=== PATIENT | male | born 1990 | race African-American/Black ===

== ENCOUNTER 2018-09-10 13:23 | Emergency (ER) | payer SELFPAY ==
[2018-09-10 16:48] LABS: #Eosinphils 0.1 thou/uL (0.0-0.7); #Lymphocytes 1.9 thou/uL (1.20-3.40); #Monocytes 0.6 thou/uL (0.11-0.59); #Neutrophils 3.3 thou/uL (1.40-6.50); %Basophils 0.7 % (0.0-1.0); %Eosinophils 1.5 % (0.0-10.0); %Lymphocytes 32.4 % (21.0-51.0); %Monocytes 9.6 % (0.0-10.0); %Neutrophils 55.8 % (42.0-75.0); Hemoglobin 14.5 g/dL (14.0-18.0); Mean Corpuscular HGB CONC 32.7 g/dL (32.0-36.0); Mean Corpuscular Hemoglobin 28.8 pg (27.0-31.0); Mean Corpuscular Volume 87.9 fL (78.0-98.0); Mean Platelet Volume 6.9 fL (7.4-10.4); Platelet Count 423 thou/uL (130-400); RBC Distribution Width 13.3 % (11.5-14.5); Red Blood Cell (RBC) Count 5.04 mill/uL (4.70-6.10)
--- NOTE | 2018-09-10 16:49 | ULT ---
VENOUS DUPLEX SONOGRAM RIGHT LOWER EXTREMITY: 09/10/18 HISTORY: Right leg pain and edema. Prior leg injury and DVT. FINDINGS: Within the mid femoral vein, some internal echoes are present with diminished flow. At this same leve l, a compressible venous structure lies immediately superficial to the femoral artery. There is good color and spectral doppler flow within the common femoral vein, deep femoral vein, grea ter saphenous junction, popliteal vein, and posterior tibial vein. IMPRESSION: The abnormal mid portion of the femoral vein contains some internal echoes and diminished flow. Has t he appearance of old thrombus. A collateral vein is seen around this area. This does not have the appearance of an acute expansile DVT. It may be related to the patient's remot e injury or incompletely resolved prior DVT. POS: [id number]
[2018-09-10 16:54] LABS: PTT 30.5 SEC (22.9-36.1); Prothrombin Time 13.1 SEC (12.0-14.7)
[2018-09-10] MEDS ORDERED: Enoxaparin Sodium 80 MG/0.8 ML SYRINGE ONE ×2 (17:11→17:13)
== END 2018-09-10 17:47 | disposition home or self-care (01) ==
LOC: ERS 13:23
DX: I82.4Y1 Acute embolism and thrombosis of unspecified deep veins of right proximal lower extremity (principal); F31.9 Bipolar disorder, unspecified; F17.200 Nicotine dependence, unspecified, uncomplicated; Z71.6 Tobacco abuse counseling
CPT/HCPCS: 36415; 85025; 85610; 85730; 96372; 99406; J1650